=== PATIENT | female | born 1935 | race Caucasian/White ===

== ENCOUNTER 2024-07-02 21:41 | Inpatient (IN) ==
[2024-07-02] MEDS ORDERED: IOPAMIDOL 100 ML BOTTLE IV ONE (21:42)
[2024-07-02 22:07] LABS: Basophils # (Auto) 0.02 K/mcL (0.00-0.30); Basophils % (Auto) 0.2 % (0.0-2.0); Eosinophils # (Auto) 0.13 K/mcL (0.00-0.70); Eosinophils % (Auto) 1.5 % (0.0-7.0); Hematocrit 38.7 % (34.1-44.9); Hemoglobin 12.3 g/dL (11.2-15.7); Lymphocytes # (Auto) 1.28 K/mcL (1.50-4.80); Lymphocytes % (Auto) 14.3 % (15.5-49.0); Mean Cell Volume 91.7 fL (80.0-100.0); Mean Corpuscular HGB Conc 31.8 g/dL (31.0-36.0); Monocytes # (Auto) 0.96 K/mcL (0.10-0.90); Monocytes % (Auto) 10.7 % (1.0-12.0); Neutrophils % (Auto) 72.1 % (38.0-78.0); Platelet Count 216 K/mcL (140-440); RBC 4.22 M/mcL (3.59-5.38); Red Cell Distribution Width 15.6 % (11.5-14.5)
[2024-07-02 22:41] LABS: ALT/SGPT 14 U/L (<40); AST/SGOT 26 U/L (<32); Albumin/Globulin Ratio 1.4 (1.0-2.3); Alkaline Phosphatase 75 U/L (39-117); Bilirubin,Total 0.3 mg/dL (0.1-1.0); Blood Urea Nitrogen 40 mg/dL (8-23); Calcium 9.3 mg/dL (8.6-10.4); Carbon Dioxide 25 mmol/L (22-30); Chloride 106 mmol/L (96-108); Globulin 2.9 gm/dL (2.2-3.7); Glomerular Filtration Rate 66; Glucose 114 mg/dL (70-105); Potassium 3.7 mmol/L (3.3-5.1); Sodium 143 mmol/L (133-145)
[2024-07-02] MEDS: ONDANSETRON 4 MG/2 ML VIAL IV ONE (22:57)
[2024-07-02] MEDS: fentaNYL 100 MCG/2 ML VIAL IV ONE (22:57)
[2024-07-03] MEDS: fentaNYL 100 MCG/2 ML VIAL IV ONE (00:21)
[2024-07-03] MEDS: LIDOCAINE 4% TOP PATCH TOPICAL ONE (01:37)
[2024-07-03] MEDS: ONDANSETRON 4 MG/2 ML VIAL IV PRN (01:37)
[2024-07-03] MEDS: HYDROcodone/APAP (PP) 5/325MG TABLET (#4) PO ONE (01:39)
[2024-07-03] MEDS: IPRATROPIUM/ALBUTEROL 3 ML AMPUL.NEB NEB ONE (01:52)
[2024-07-03] MEDS: HYDROmorphone 0.5 MG/0.5 ML SYRINGE IV PRN (02:16)
[2024-07-03] MEDS: ONDANSETRON 4 MG/2 ML VIAL ONE (02:38)
[2024-07-03] MEDS: 0.9 % SODIUM CHLORIDE 10 ML SYRINGE IV SCH (05:39)
[2024-07-03] MEDS: IPRATROPIUM/ALBUTEROL 3 ML AMPUL.NEB NEB SCH ×2 (07:42→12:35)
[2024-07-03] MEDS ORDERED: MAGNESIUM SULFATE 2 GM/50 ML BAG IV PRN (08:28)
[2024-07-03] MEDS ORDERED: POTASSIUM CHLORIDE 20 MEQ TABLET PO PRN ×2 (08:28)
[2024-07-03] MEDS ORDERED: POTASSIUM CHLORIDE 40 MEQ in DEXTROSE 5% IN WATER 500 ML IV PRN (08:28)
[2024-07-03] MEDS ORDERED: METOCLOPRAMIDE 10 MG/2 ML VIAL IV PRN (08:28)
[2024-07-03] MEDS ORDERED: ACETAMINOPHEN 325 MG TABLET PO PRN (08:28)
[2024-07-03] MEDS: HEPARIN 5,000 UNIT/ML VIAL SQ SCH (08:45)
[2024-07-03] MEDS: HYDROcodone/APAP 5/325MG TABLET PO PRN (08:45)
[2024-07-03] MEDS: DOCUSATE SODIUM 100 MG CAPSULE PO SCH (08:45)
[2024-07-03] MEDS: BUDESONIDE 0.5 MG/2 ML AMPUL.NEB NEB SCH (10:00)
[2024-07-03] MEDS: NICOTINE 21 MG PATCH TOPICAL SCH (10:04)
[2024-07-03] MEDS: LIDOCAINE 4% TOP PATCH TOPICAL SCH (10:04)
[2024-07-03] MEDS: morphine 4 MG/ML VIAL IV PRN (10:05)
[2024-07-03] MEDS: methylPREDNISolone SOD SUCC 125 MG/2 ML VIAL IV ONE (10:41)
[2024-07-03] MEDS: methylPREDNISolone SOD SUCC 40 MG/ML VIAL IV SCH (21:36)
[2024-07-03] MEDS: SENNOSIDES 1 TABLET PO SCH (21:36)
[2024-07-04] MEDS: ONDANSETRON 4 MG/2 ML VIAL IV PRN (03:57)
[2024-07-04 06:32] LABS: ALT/SGPT 11 U/L (<40); AST/SGOT 24 U/L (<32); Albumin 3.8 gm/dL (3.2-5.2); Albumin/Globulin Ratio 1.4 (1.0-2.3); Alkaline Phosphatase 66 U/L (39-117); Bilirubin,Direct 0.2 mg/dL (<0.3); Bilirubin,Total 0.5 mg/dL (0.1-1.0); Blood Urea Nitrogen 55 mg/dL (8-23); Calcium 9.3 mg/dL (8.6-10.4); Carbon Dioxide 25 mmol/L (22-30); Chloride 102 mmol/L (96-108); Globulin 2.7 gm/dL (2.2-3.7); Glomerular Filtration Rate 40; Glucose 163 mg/dL (70-105); Lactate Dehydrogenase 202 U/L (135-225); Phosphorous 3.7 mg/dL (2.5-4.5); Potassium 5.3 mmol/L (3.3-5.1); Sodium 137 mmol/L (133-145); Triglycerides 56 mg/dL (<150); Uric Acid 5.7 mg/dL (2.5-8.0)
[2024-07-04] MEDS: 0.9 % SODIUM CHLORIDE 1,000 ML IV ONE (08:40)
[2024-07-04] MEDS: SIMVASTATIN 10 MG TABLET PO SCH (08:45)
[2024-07-04] MEDS: PANTOPRAZOLE 40 MG TABLET PO SCH (08:45)
[2024-07-04] MEDS: CITALOPRAM 20 MG TABLET PO SCH (08:45)
[2024-07-04] MEDS: GABAPENTIN 100 MG CAPSULE PO SCH (08:45)
[2024-07-04] MEDS: predniSONE 20 MG TABLET PO SCH (08:46)
[2024-07-04] MEDS: amLODIPine 5 MG TABLET PO SCH (08:46)
[2024-07-04] MEDS: SODIUM CHLORIDE 154 MEQ in WATER FOR INJECTION,STERILE 961.5 ML IV ONE (09:16)
[2024-07-04] MEDS: IPRATROPIUM/ALBUTEROL 3 ML AMPUL.NEB NEB PRN (19:20)
[2024-07-05 06:56] LABS: ALT/SGPT 98 U/L (<40); AST/SGOT 132 U/L (<32); Albumin 3.7 gm/dL (3.2-5.2); Albumin/Globulin Ratio 1.4 (1.0-2.3); Alkaline Phosphatase 74 U/L (39-117); Bilirubin,Direct 0.2 mg/dL (<0.3); Bilirubin,Total 0.4 mg/dL (0.1-1.0); Blood Urea Nitrogen 57 mg/dL (8-23); Carbon Dioxide 23 mmol/L (22-30); Chloride 106 mmol/L (96-108); Globulin 2.7 gm/dL (2.2-3.7); Glomerular Filtration Rate 57; Glucose 151 mg/dL (70-105); Lactate Dehydrogenase 270 U/L (135-225); Potassium 5.4 mmol/L (3.3-5.1); Sodium 139 mmol/L (133-145); Triglycerides 65 mg/dL (<150); Uric Acid 5.1 mg/dL (2.5-8.0)
[2024-07-05] MEDS: SODIUM POLYSTYRENE SULFONATE 15 GM/60 ML SUSPENSION PO ONE (08:07)
[2024-07-05] MEDS ORDERED: IOPAMIDOL 100 ML BOTTLE IV ONE (09:17)
[2024-07-05] MEDS: predniSONE 20 MG TABLET PO SCH (09:27)
[2024-07-05] MEDS: MINERAL OIL 1 DOSE ENEMA PR PRN (10:24)
[2024-07-05] MEDS: LACTULOSE 20 GM/30 ML ORAL.SOL PO ONE (10:24)
[2024-07-05] MEDS: SODIUM CHLORIDE 154 MEQ in WATER FOR INJECTION,STERILE 961.5 ML IV ONE (10:24)
[2024-07-05 11:59] LABS: Sodium, Urine Random 36 mmol/L
[2024-07-05 12:04] LABS: Appearance,Urine CLEAR (Clear); Bilirubin,Urine Negative (Negative); Color,Urine YELLOW; Glucose,Urine (UA) Negative (Negative); Ketones,Urine Negative (Negative); Leukocyte Esterase,Urine 75 /uL (Negative); Nitrate,Urine Negative (Negative); Protein,Urine Negative (Negative); Urine Blood Negative (Negative); Urine RBC 0 /hpf (0-3); Urine Squamous Epithelial Cell 4 /hpf (0-4); Urine WBC 11 /hpf (0-4); Urobilinogen,Urine Negative
[2024-07-05] MEDS: 0.9 % SODIUM CHLORIDE 1,000 ML IV ONE ×2 (12:28)
[2024-07-05] MEDS: POLYETHYLENE GLYCOL 3350 17 GM PACKET PO PRN (21:20)
[2024-07-05] MEDS: SIMVASTATIN 10 MG TABLET PO SCH (21:27)
[2024-07-06 07:06] LABS: ALT/SGPT 103 U/L (<40); AST/SGOT 93 U/L (<32); Albumin 3.6 gm/dL (3.2-5.2); Albumin/Globulin Ratio 1.4 (1.0-2.3); Alkaline Phosphatase 73 U/L (39-117); Bilirubin,Direct 0.2 mg/dL (<0.3); Bilirubin,Total 0.5 mg/dL (0.1-1.0); Blood Urea Nitrogen 35 mg/dL (8-23); Carbon Dioxide 25 mmol/L (22-30); Chloride 109 mmol/L (96-108); Globulin 2.6 gm/dL (2.2-3.7); Glomerular Filtration Rate 81; Glucose 95 mg/dL (70-105); Lactate Dehydrogenase 243 U/L (135-225); Potassium 3.9 mmol/L (3.3-5.1); Sodium 142 mmol/L (133-145); Triglycerides 84 mg/dL (<150); Uric Acid 4.2 mg/dL (2.5-8.0)
== END 2024-07-06 11:08 | DRG 947 ==
LOC: ED 21:41 → MEDSUR 07-03 02:08
PROVIDERS: ADMIT Internal Medicine; ATTEND Internal Medicine

== ENCOUNTER 2024-08-01 18:03 | Inpatient (IN) ==
[2024-08-01] MEDS ORDERED: IOPAMIDOL 100 ML BOTTLE IV ONE (18:04)
[2024-08-01] MEDS: IPRATROPIUM/ALBUTEROL 3 ML AMPUL.NEB NEB ONE (18:22)
[2024-08-01] MEDS: methylPREDNISolone SOD SUCC 125 MG/2 ML VIAL IV ONE (18:29)
[2024-08-01 18:32] LABS: Basophils # (Auto) 0.05 K/mcL (0.00-0.30); Basophils % (Auto) 0.6 % (0.0-2.0); Eosinophils # (Auto) 0.18 K/mcL (0.00-0.70); Eosinophils % (Auto) 2.3 % (0.0-7.0); Hemoglobin 11.2 g/dL (11.2-15.7); Lymphocytes # (Auto) 0.85 K/mcL (1.50-4.80); Lymphocytes % (Auto) 10.7 % (15.5-49.0); Mean Cell Volume 94.5 fL (80.0-100.0); Mean Corpuscular HGB Conc 31.1 g/dL (31.0-36.0); Mean Platelet Volume 8.4 fL (8.8-12.5); Monocytes # (Auto) 1.32 K/mcL (0.10-0.90); Monocytes % (Auto) 16.5 % (1.0-12.0); Neutrophils % (Auto) 69.6 % (38.0-78.0); Platelet Count 353 K/mcL (140-440); RBC 3.81 M/mcL (3.59-5.38); Red Cell Distribution Width 14.6 % (11.5-14.5)
[2024-08-01 18:47] LABS: ALT/SGPT 7 U/L (<40); AST/SGOT 21 U/L (<32); Albumin 3.8 gm/dL (3.2-5.2); Albumin/Globulin Ratio 1.1 (1.0-2.3); Alkaline Phosphatase 178 U/L (39-117); Bilirubin,Total 0.6 mg/dL (0.1-1.0); Blood Urea Nitrogen 18 mg/dL (8-23); Calcium 9.6 mg/dL (8.6-10.4); Carbon Dioxide 26 mmol/L (22-30); Chloride 102 mmol/L (96-108); Globulin 3.6 gm/dL (2.2-3.7); Glomerular Filtration Rate 86; Glucose 109 mg/dL (70-105); Potassium 4.1 mmol/L (3.3-5.1); Sodium 143 mmol/L (133-145)
[2024-08-01 20:05] LABS: Thyroid Stimulating Hormone 1.69 uIU/mL (0.27-5.01)
[2024-08-01 20:20] LABS: Appearance,Urine Clear (Clear); Bacteria,Urine Few /hpf (0); Bilirubin,Urine Negative (Negative); Color,Urine Yellow; Glucose,Urine (UA) Negative (Negative); Ketones,Urine 40 mg/dL (Negative); Leukocyte Esterase,Urine Negative /uL (Negative); Nitrate,Urine Negative (Negative); Protein,Urine 100 mg/dL (Negative); Specific Gravity,Urine 1.025 (1.000-1.035); Urine Blood Trace-intact ery/mcL (Negative); Urine RBC 1 /hpf (0-3); Urine Squamous Epithelial Cell 7 /hpf (0-4); Urine WBC 11 /hpf (0-4); Urobilinogen,Urine Normal
[2024-08-01 21:35] LABS: Free T4 (Free Thyroxine) 1.31 ng/dL (0.93-1.70)
[2024-08-01] MEDS ORDERED: ONDANSETRON 4 MG/2 ML VIAL IV PRN (22:33)
[2024-08-02] MEDS ORDERED: MAGNESIUM SULFATE 2 GM/50 ML BAG IV PRN (08:15)
[2024-08-02] MEDS ORDERED: POTASSIUM CHLORIDE 40 MEQ in DEXTROSE 5% IN WATER 500 ML IV PRN (08:15)
[2024-08-02] MEDS ORDERED: METOCLOPRAMIDE 10 MG/2 ML VIAL IV PRN (08:15)
[2024-08-02] MEDS ORDERED: POTASSIUM CHLORIDE 20 MEQ TABLET PO PRN ×2 (08:15)
[2024-08-02] MEDS ORDERED: SENNOSIDES 1 TABLET PO PRN (08:15)
[2024-08-02] MEDS ORDERED: POLYETHYLENE GLYCOL 3350 17 GM PACKET PO PRN (08:15)
[2024-08-02] MEDS: HYDROcodone/APAP 5/325MG TABLET PO PRN (10:14)
[2024-08-02] MEDS: ASPIRIN 81 MG TAB.CHEW PO SCH (10:14)
[2024-08-02] MEDS: amLODIPine 5 MG TABLET PO SCH (10:14)
[2024-08-02] MEDS: DOCUSATE SODIUM 100 MG CAPSULE PO SCH (10:14)
[2024-08-02] MEDS: CITALOPRAM 20 MG TABLET PO SCH (10:14)
[2024-08-02] MEDS: GABAPENTIN 100 MG CAPSULE PO SCH (10:14)
[2024-08-02] MEDS: PANTOPRAZOLE 40 MG TABLET PO SCH (10:14)
[2024-08-02] MEDS: FLUTICASONE FUROATE INH SCH (10:15)
[2024-08-02] MEDS: SIMVASTATIN 10 MG TABLET PO SCH (10:15)
[2024-08-02] MEDS: ENOXAPARIN 30 MG/0.3 ML SYRINGE SQ SCH (10:15)
[2024-08-02] MEDS: VILANTEROL INH SCH (10:15)
[2024-08-02] MEDS ORDERED: LABETALOL HCL 20 MG/4 ML VIAL IV PRN (10:45)
[2024-08-02] MEDS: 0.9 % SODIUM CHLORIDE 500 ML IV ONE (12:19)
[2024-08-02] MEDS: 0.9 % SODIUM CHLORIDE 10 ML SYRINGE IV SCH (14:39)
[2024-08-02] MEDS ORDERED: diphenhydrAMINE 25 MG CAPSULE PO PRN (20:20)
[2024-08-03 06:48] LABS: ALT/SGPT 7 U/L (<40); AST/SGOT 25 U/L (<32); Albumin 3.5 gm/dL (3.2-5.2); Albumin/Globulin Ratio 1.1 (1.0-2.3); Alkaline Phosphatase 145 U/L (39-117); Bilirubin,Direct < 0.2 mg/dL (0-0.3); Bilirubin,Total 0.3 mg/dL (0.1-1.0); Blood Urea Nitrogen 37 mg/dL (8-23); Calcium 9.3 mg/dL (8.6-10.4); Carbon Dioxide 31 mmol/L (22-30); Chloride 103 mmol/L (96-108); Globulin 3.1 gm/dL (2.2-3.7); Glomerular Filtration Rate 77; Glucose 101 mg/dL (70-105); Lactate Dehydrogenase 184 U/L (135-225); Sodium 144 mmol/L (133-145); Triglycerides 74 mg/dL (<150)
[2024-08-03] MEDS: IPRATROPIUM/ALBUTEROL 3 ML AMPUL.NEB NEB PRN (09:59)
[2024-08-03] MEDS: LISINOPRIL 10 MG TABLET PO SCH (13:02)
[2024-08-03] MEDS: ACETAMINOPHEN 325 MG TABLET PO PRN (18:51)
[2024-08-03] MEDS: MELATONIN 3 MG TABLET PO PRN (20:01)
[2024-08-03] MEDS: SIMVASTATIN 10 MG TABLET PO SCH (20:40)
[2024-08-04 06:51] LABS: ALT/SGPT 7 U/L (<40); AST/SGOT 20 U/L (<32); Albumin 3.3 gm/dL (3.2-5.2); Albumin/Globulin Ratio 1.1 (1.0-2.3); Alkaline Phosphatase 123 U/L (39-117); Bilirubin,Direct < 0.2 mg/dL (0-0.3); Bilirubin,Total 0.2 mg/dL (0.1-1.0); Blood Urea Nitrogen 34 mg/dL (8-23); Calcium 9.1 mg/dL (8.6-10.4); Carbon Dioxide 33 mmol/L (22-30); Chloride 103 mmol/L (96-108); Glomerular Filtration Rate 81; Glucose 89 mg/dL (70-105); Lactate Dehydrogenase 173 U/L (135-225); Phosphorous 3.4 mg/dL (2.5-4.5); Sodium 143 mmol/L (133-145); Triglycerides 96 mg/dL (<150); Uric Acid 4.8 mg/dL (2.5-8.0)
== END 2024-08-06 11:10 | DRG 70 ==
LOC: ED 18:03 → MEDSUR 23:26
PROVIDERS: ADMIT Internal Medicine; ATTEND Internal Medicine